=== PATIENT | male | born 1935 | race Caucasian/White ===

== ENCOUNTER 2017-06-08 09:50 | Inpatient (IN) | payer MEDICARE, BC, OTHER ==
[~2017-06-08] VITALS: Ht 180.3 cm; Wt 72.8 kg
[~2017-06-08 09:50] MED LIST: CLIN300C3 PO; DABI75CA3 PO; LEVO150T PO; SIMV40TA3 PO; SULF1TAB24 PO
[2017-06-08] MEDS ORDERED: SODIUM CHLORIDE FLUSH 10ML SYR IVF ONE (10:00)
[2017-06-08 10:26] LABS: HEMATOCRIT 34.2 % (39.2-51.8); HEMOGLOBIN 11.5 g/dL (13.7-18.0); WHITE BLOOD COUNT 4.9 x10^3/uL (3.4-10)
[2017-06-08] MEDS ORDERED: ASPI325T17 PO (10:33)
[2017-06-08] MEDS ORDERED: MULT-6 PO (10:33)
[2017-06-08] MEDS ORDERED: TIOT18CA INH (10:33)
[2017-06-08] MEDS ORDERED: ATOR40TA78 PO ×2 (10:33→11:18)
[2017-06-08] MEDS ORDERED: UBID10CA7 PO (10:33)
[2017-06-08] MEDS ORDERED: TAMS-11 PO (10:33)
[2017-06-08] MEDS ORDERED: CARV3.1212 PO (10:33)
[2017-06-08 10:40] LABS: BLOOD UREA NITROGEN 28 mg/dL (7-18)
[2017-06-08 10:44] LABS: IS PT STATUS REG ER OR PRE ER? YES
[2017-06-08] MEDS ORDERED: PRAV20TA2 PO (11:01)
[2017-06-08] MEDS ORDERED: CARV6.252 PO (11:18)
[2017-06-08 12:31] VITALS: BP 118/73
[2017-06-08] MEDS ORDERED: POLYETHYLENE GLYCOL 17 GM PACKET PO PRN (13:00)
[2017-06-08] MEDS ORDERED: morphine SULFATE 10 MG/ML, 1ML IVPush PRN (13:00)
[2017-06-08] MEDS ORDERED: ZOLPIDEM 5MG TABLET PO PRN (13:00)
[2017-06-08] MEDS ORDERED: OXYcodone IR 5MG TABLET PO PRN (13:00)
[2017-06-08] MEDS ORDERED: ONDANSETRON ODT 4 MG PO PRN (13:00)
[2017-06-08] MEDS ORDERED: LABETALOL 5MG/ML, 20ML IVPush PRN ×2 (13:00)
[2017-06-08] MEDS ORDERED: NITROGLYCERIN 0.4 MG BOTTLE (25 TABS) SL PRN (13:00)
[2017-06-08] MEDS ORDERED: ONDANSETRON 2MG/ML, 2ML IVPush PRN (13:00)
[2017-06-08] MEDS ORDERED: BISACODYL 10 MG SUPP PR PRN (13:00)
[2017-06-08 13:14] VITALS: BP 118/73
[2017-06-08] MEDS ORDERED: IPRATROPIUM 0.5 MG/2.5 ML INHA HHN PRN (13:30)
[2017-06-08 15:19] LABS: IS PT STATUS REG ER OR PRE ER? NO
[2017-06-08 16:00] VITALS: BP 121/67
[2017-06-08] MEDS ORDERED: IPRATROPIUM 0.5 MG/2.5 ML INHA NPPB PRN (19:30)
[2017-06-08 20:11] VITALS: BP 115/60
[2017-06-08] MEDS: CARVEDILOL 6.25 MG TABLET PO SCH (20:12)
[2017-06-08] MEDS: DABIGATRAN 75 MG CAPSULE PO SCH (20:12)
[2017-06-08] MEDS: ATORVASTATIN 40 MG TABLET PO SCH (20:12)
[2017-06-08] MEDS ORDERED: FAMOTIDINE 20 MG TABLET PO SCH (21:00)
[2017-06-09 03:54] VITALS: BP 118/70
[2017-06-09 05:45] LABS: HEMATOCRIT 34.1 % (39.2-51.8); HEMOGLOBIN 11.5 g/dL (13.7-18.0); WHITE BLOOD COUNT 5.2 x10^3/uL (3.4-10)
[2017-06-09 05:49] LABS: BLOOD UREA NITROGEN 24 mg/dL (7-18)
[2017-06-09] MEDS: LEVOTHYROXINE 150 MCG TABLET PO SCH (05:59)
[2017-06-09] MEDS: ASPIRIN 325 MG TABLET PO SCH (08:46)
[2017-06-09] MEDS: DABIGATRAN 75 MG CAPSULE PO SCH ×2 (08:46→20:02)
[2017-06-09] MEDS: MULTIVITAMIN 1 TABLET PO SCH (08:46)
[2017-06-09] MEDS: FAMOTIDINE 20 MG TABLET PO SCH (08:46)
[2017-06-09] MEDS: TAMSULOSIN 0.4 MG CAP.ER.24H PO SCH (08:46)
[2017-06-09] MEDS: CARVEDILOL 6.25 MG TABLET PO SCH ×2 (08:46→20:02)
[2017-06-09 08:47] VITALS: BP 96/54
[2017-06-09] MEDS ORDERED: UBIDECARENONE 10 MG PO SCH (09:00)
[2017-06-09] MEDS ORDERED: MAGNESIUM SULFATE PMX 2GM/50ML 50 ML IV ONE (09:30)
[2017-06-09] MEDS: LISINOPRIL 5 MG TABLET PO SCH (10:18)
[2017-06-09] MEDS: AMIODARONE 200 MG TABLET PO SCH ×2 (10:18→20:03)
[2017-06-09 15:00] VITALS: BP 101/63
[2017-06-09 19:58] VITALS: BP 110/67
[2017-06-09] MEDS: ATORVASTATIN 40 MG TABLET PO SCH (20:02)
[2017-06-10 01:21] VITALS: BP 115/70
[2017-06-10 05:43] LABS: HEMATOCRIT 32.2 % (39.2-51.8); WHITE BLOOD COUNT 4.9 x10^3/uL (3.4-10)
[2017-06-10 05:54] LABS: BLOOD UREA NITROGEN 25 mg/dL (7-18)
[2017-06-10] MEDS: LEVOTHYROXINE 150 MCG TABLET PO SCH (06:17)
[2017-06-10 08:45] VITALS: BP 104/62
[2017-06-10] MEDS: DABIGATRAN 75 MG CAPSULE PO SCH (09:19)
[2017-06-10] MEDS: LISINOPRIL 5 MG TABLET PO SCH (09:20)
[2017-06-10] MEDS: ASPIRIN 325 MG TABLET PO SCH (09:20)
[2017-06-10] MEDS: AMIODARONE 200 MG TABLET PO SCH (09:20)
[2017-06-10] MEDS: MULTIVITAMIN 1 TABLET PO SCH (09:20)
[2017-06-10] MEDS: CARVEDILOL 6.25 MG TABLET PO SCH (09:20)
[2017-06-10] MEDS: FAMOTIDINE 20 MG TABLET PO SCH (09:20)
[2017-06-10] MEDS: TAMSULOSIN 0.4 MG CAP.ER.24H PO SCH (09:20)
[2017-06-10] MEDS ORDERED: LISI5TAB7 PO (10:03)
[2017-06-10] MEDS ORDERED: AMIO400T4 PO (10:03)
== END 2017-06-10 13:00 | disposition home or self-care (01) | DRG 308 ==
LOC: ED 10:54 → EDIP 11:20 → 5SO 12:29
PROVIDERS: ADMIT Hospitalist; ATTEND Hospitalist
PROC: 4B02XTZ Measurement of Cardiac Defibrillator, External Approach (ICD-10-PCS; principal; 2017-06-08)
DX: I47.2 Ventricular tachycardia (principal); N17.0 Acute kidney failure with tubular necrosis; D68.69 Other thrombophilia; E11.22 Type 2 diabetes mellitus with diabetic chronic kidney disease; I13.0 Hypertensive heart and chronic kidney disease with heart failure and stage 1 through stage 4 chronic kidney disease, or unspecified chronic kidney disease; I95.9 Hypotension, unspecified; I50.9 Heart failure, unspecified; I25.5 Ischemic cardiomyopathy; I48.2 Chronic atrial fibrillation; I25.10 Atherosclerotic heart disease of native coronary artery without angina pectoris; E03.9 Hypothyroidism, unspecified; N18.9 Chronic kidney disease, unspecified; E78.5 Hyperlipidemia, unspecified; G47.30 Sleep apnea, unspecified; I08.0 Rheumatic disorders of both mitral and aortic valves; J44.9 Chronic obstructive pulmonary disease, unspecified; K27.9 Peptic ulcer, site unspecified, unspecified as acute or chronic, without hemorrhage or perforation; N40.0 Benign prostatic hyperplasia without lower urinary tract symptoms; Z86.711 Personal history of pulmonary embolism; Z86.73 Personal history of transient ischemic attack (TIA), and cerebral infarction without residual deficits; Z86.79 Personal history of other diseases of the circulatory system; Z87.11 Personal history of peptic ulcer disease; Z87.891 Personal history of nicotine dependence; Z95.0 Presence of cardiac pacemaker; Z95.1 Presence of aortocoronary bypass graft; Z95.810 Presence of automatic (implantable) cardiac defibrillator; Z95.5 Presence of coronary angioplasty implant and graft
CPT/HCPCS: 36415; 36430; 71010; 80048; 80061; 82040; 83605; 83690; 83735; 83880; 84439; 84443; 84484; 85025; 85610; 85730; 93005; 93306; 96360; 96361; 99285; J3475

== ENCOUNTER → 2018-01-23 | Outpatient (CLI) | payer MEDICARE, BC, OTHER ==
[~2018-01-23] MED LIST changes: +AMIO400T5 PO; +ASPI325T17 PO; +ATOR40TA78 PO; +CARV3.1212 PO; +CARV6.252 PO; +LISI5TAB7 PO; +MULT-6 PO; +PRAV20TA2 PO; +REGADENOSON 0.4 MG/5 ML SYRINGE ONE; +TAMS-11 PO; +TIOT18CA INH; +UBID10CA7 PO
== END | disposition home or self-care (01) ==
LOC: CVU 06:59
PROVIDERS: ATTEND Internal Medicine Cardiovascular Disease
DX: I65.23 Occlusion and stenosis of bilateral carotid arteries (principal); I25.10 Atherosclerotic heart disease of native coronary artery without angina pectoris; I10 Essential (primary) hypertension; I25.5 Ischemic cardiomyopathy; I25.2 Old myocardial infarction; E11.9 Type 2 diabetes mellitus without complications; Z86.73 Personal history of transient ischemic attack (TIA), and cerebral infarction without residual deficits; Z87.891 Personal history of nicotine dependence; Z95.1 Presence of aortocoronary bypass graft
CPT/HCPCS: 78452; 93017; 93880; A9502; C8929; J2785